=== PATIENT | female | born 1960 | race Caucasian/White ===

== ENCOUNTER 2017-07-12 14:17 | Outpatient (CLI) | payer OTHER | END 2017-07-12 14:18 | disposition home or self-care (01) | LOC: BICRAD 14:17 | PROVIDERS: ATTEND Family Medicine | DX: M25.572 Pain in left ankle and joints of left foot (principal) ==

== ENCOUNTER → 2017-08-25 | Day surgery (SDC) | payer OTHER ==
[~2017-08-25] MED LIST: Heparin 1,000 UNITS/ML VIAL ONE
--- NOTE | 2017-08-25 13:56 | SPC ---
PROCEDURE: PERIPHERAL INSERTION CENTRAL CATHETER: INDICATION: IV treatment. FINDINGS: A dual-lumen 5 [place] PICC was placed via the left brachial vein using ultrasound guidance and fluoro scopic confirmation. The tip is positioned in the SVC. PROCEDURE NOTE: Ultrasound was used to assess the venous structures. Initial puncture was made into the basilic vein in the mid upper humerus region. This vein was punctured with micropuncture technique under local a nesthesia and blood flow was recovered. However, a wire would not thread into this vein through the needle and this vein had to be abandoned. Repeat venous puncture was then made in the left brachial vein in the more distal humerus region unde r ultrasound guidance. Blood flow as recovered with a micropuncture technique and the wire was advan tika through this vein easily. The wire advanced into the central circulation. A sheath was placed. On placing the catheter over the wire, the catheter lodged in the axilla and would not advance over t he wire. The wire and catheter were removed and iodinated contrast was injected to assess the venous structure s. The wire had followed a branch from the brachial vein which was very stenotic in the region of th e axilla which explained the difficulty threading the catheter through this vein. I was able to retr act the sheath and direct the wire into the main brachial trunk which then entered into the axillary vein, subclavian vein, and into the SVC. The catheter then easily advanced over the wire and was pos itioned at the SVC. The [place] sheath was removed and the wire was removed. The catheter was flus hed and secured with a sterile dressing. The patient tolerated the procedure well and there were no problems or complications. POS: RAMY
== END ==
LOC: SPEC 08:51
PROVIDERS: ATTEND Internal Medicine Infectious Disease
DX: K29.00 Acute gastritis without bleeding (principal); Z88.2 Allergy status to sulfonamides
CPT/HCPCS: 36569; C1751; J1644

== ENCOUNTER 2018-02-09 12:57 | Outpatient (CLI) | payer OTHER ==
--- NOTE | 2018-02-13 10:50 | MMO ---
BILATERAL SCREENING MAMMOGRAM: Date: 02/09/18 HISTORY: Screening. COMPARISON: Mammograms from 2013. TECHNIQUE: Bilateral screening CC and MLO mammograms. This patient's mammogram was interpreted with the assistance of computer-aided detection. FINDINGS: There are benign calcifications in right and left breast. Scattered fibroglandular densities. No susp icious mass, architectural distortion, or microcalcifications. IMPRESSION: BIRADS 2: Benign Finding(s) Continued annual mammographic screening is recommended. POS: RAMY
== END 2018-02-09 12:58 | disposition home or self-care (01) ==
LOC: SCSMAMMO 12:57
PROVIDERS: ATTEND Physician Assistant
DX: Z12.31 Encounter for screening mammogram for malignant neoplasm of breast (principal)
CPT/HCPCS: 77067

== ENCOUNTER 2018-07-12 08:28 | Outpatient (CLI) | payer OTHER ==
--- NOTE | 2018-07-12 15:12 | NM ---
NUCLEAR MEDICINE BRAIN IMAGING TOMOGRAPHIC EXAM: INDICATIONS: Drug-induced tremor. RADIOPHARMACEUTICAL: Potassium iodide 130 mg p.o. FINDINGS: There is a symmetric appearance of the lentiform nuclei bilaterally. IMPRESSION: Normal nuclear medicine brain imaging examination, without scintigraphic evidence to indicate crow onian type syndrome. POS: TPC
== END 2018-07-12 08:29 | disposition home or self-care (01) ==
LOC: NM 08:28
PROVIDERS: ATTEND Nurse Practitioner Acute Care
DX: G25.1 Drug-induced tremor (principal)
CPT/HCPCS: 78607; A9584

== ENCOUNTER 2025-03-13 11:36 | Outpatient (CLI) | payer OTHER | END 2025-03-13 11:37 | disposition home or self-care (01) | LOC: BICMAMMO 11:36 | PROVIDERS: ATTEND Nurse Practitioner Family | DX: Z12.31 Encounter for screening mammogram for malignant neoplasm of breast (principal); Z78.0 Asymptomatic menopausal state; M85.89 Other specified disorders of bone density and structure, multiple sites; Z80.3 Family history of malignant neoplasm of breast; Z98.890 Other specified postprocedural states | CPT/HCPCS: 77063; 77067; 77080 ==